=== PATIENT | male | born 1930 | race Caucasian/White ===

== ENCOUNTER 2016-06-25 18:46 | Emergency (ER) | payer OTHER ==
[~2016-06-25] VITALS: Ht 172.7 cm; Wt 76.7 kg
[2016-06-25 21:41] VITALS: BP 116/56
== END 2016-06-25 21:47 | disposition short-term general hospital (02) ==
LOC: EME 18:46
DX: M00.812 Arthritis due to other bacteria, left shoulder (principal); J45.909 Unspecified asthma, uncomplicated; I10 Essential (primary) hypertension; I25.2 Old myocardial infarction; I25.10 Atherosclerotic heart disease of native coronary artery without angina pectoris; Z98.61 Coronary angioplasty status; Z87.891 Personal history of nicotine dependence
CPT/HCPCS: 99281; 99284; J2270; J2405; J7030